=== PATIENT | female | born 1935 | race Caucasian/White ===

== ENCOUNTER 2018-06-28 05:00 | Emergency (ER) | payer MEDICARE, OTHER ==
[~2018-06-28] VITALS: Ht 154.9 cm; Wt 52.2 kg
[~2018-06-28 05:00] MED LIST: ACET325 PO; ALLERGY RELIE15.8 ML; Amitiza24 MCG PO; Amitiza8 MCG; CALCA500CH PO; CEPH500 PO; CONESTTC VAG; Cipro500 MG PO; DIPATR PO; ELIQUIS2.5 MG PO; FAMO20 PO; Flonase 0.05% N16 GM; HYDCOR2.5C PR; HYDR1TAB94 PO; K-Dur20 MEQ PO; Klor-Con 1010 MEQ PO; LEVSOD125; LEVSOD50 PO; LEVSOD75 PO; Lomotil Tablet1 EACH PO; MEMA10 PO; MULT50L PO; Micro-K10 MEQ PO; POTCHL10ER PO; PRED1; PRED1 PO; PRED5 PO; PREMARIN TOP; Refresh Eye Dr1 EACH BOTHEYES; Refresh Plus1 EACH OP; TRIM100 PO; Zofran Odt4 MG SL
[2018-06-28] MEDS ORDERED: Ultram50 MG PO (06:18)
== END 2018-06-28 07:32 | disposition home or self-care (01) ==
LOC: ER 05:00
DX: M25.532 Pain in left wrist (principal); Z88.2 Allergy status to sulfonamides; Z88.8 Allergy status to other drugs, medicaments and biological substances; Z79.899 Other long term (current) drug therapy; Z79.52 Long term (current) use of systemic steroids; E03.9 Hypothyroidism, unspecified
CPT/HCPCS: 29125; 73130; 99284-25; L3917

== ENCOUNTER → 2019-03-24 | Outpatient (CLI) | payer MEDICARE, OTHER ==
[~2019-03-24] MED LIST changes: +Ultram50 MG PO
[2019-03-24 14:05] LABS: Bilirubin, Urine Neg (Neg); Blood, Urine Neg (Neg); Glucose Qualitative, Urine Neg (Neg); Ketones, Urine 1+ (Neg); Leukocyte Esterase, Urine 2+ (Neg); Nitrite, Urine Neg (Neg); Protein, Urine Neg (Neg); Urobilinogen, Urine NORM (Normal)
[2019-03-24 15:03] LABS: Appearance, Urine Hazy (Clear); Bacteria Mod /hpf; Color, Urine Yellow (P-Yellow); Red Blood Cells, Urine 0-2 /hpf (0-2); Squamous Epithelial Cells Mod /hpf (Few)
[2019-03-24 15:04] LABS: Hyaline Casts 0-2 /lpf (0-2)
== END | disposition home or self-care (01) ==
LOC: LAB SHORT 13:36 → LAB 13:36
PROVIDERS: Hospitalist
DX: N39.0 Urinary tract infection, site not specified (principal)
CPT/HCPCS: 81001

== ENCOUNTER 2019-03-27 16:15 | Emergency (ER) | payer MEDICARE, OTHER ==
[~2019-03-27] VITALS: Ht 157.5 cm; Wt 67.1 kg
[2019-03-27] MEDS ORDERED: ELIQUIS2.5 MG PO (16:34)
[2019-03-27] MEDS ORDERED: CEPH500 (16:34)
[2019-03-27] MEDS ORDERED: POTCHL10ER PO (16:35)
[2019-03-27] MEDS ORDERED: RANI150EL (16:35)
[2019-03-27] MEDS ORDERED: LEVSOD50 PO (16:35)
[2019-03-27] MEDS ORDERED: PRED1 PO (16:35)
[2019-03-27] MEDS ORDERED: CHOL10002 (16:36)
[2019-03-27] MEDS ORDERED: TRIM100 PO (16:36)
[2019-03-27] MEDS ORDERED: SERT100 PO (16:36)
[2019-03-27] MEDS ORDERED: ACET325 (16:42)
[2019-03-27 17:00] LABS: BASOPHILS ABSOLUTE AUTO 0.07 K/mm3 (0.00-0.23); BASOPHILS PERCENT AUTO 1 % (0-2); EOSINOPHILS ABSOLUTE AUTO 0.12 K/mm3 (0.00-0.68); EOSINOPHILS PERCENT AUTO 2 % (0-6); Hematocrit 35.2 % (33.0-51.0); Hemoglobin 10.8 g/dL (11.5-16.0); IMMATURE GRAN ABSOLUTE AUTO 0.02 K/mm3 (0.00-0.10); IMMATURE GRAN PERCENT AUTO 0 % (0-1); LYMPHOCYTES ABSOLUTE AUTO 1.42 K/mm3 (0.84-5.20); LYMPHOCYTES PERCENT AUTO 23 % (21-46); MONOCYTES ABSOLUTE AUTO 0.67 K/mm3 (0.16-1.47); MONOCYTES PERCENT AUTO 11 % (4-13); Mean Corpuscular HGB 27.1 pg (26.0-34.0); Mean Corpuscular HGB Conc 30.7 g/dL (31.5-36.5); Mean Corpuscular Volume 88 fL (80-100); Mean Platelet Volume 9.3 fL (9.1-12.4); NEUTROPHILS ABSOLUTE AUTO 3.81 K/mm3 (1.96-9.15); NEUTROPHILS PERCENT AUTO 62 % (41-73); Platelet Count 250 K/mm3 (150-400); RDW Coefficient Variation 15.7 % (11.7-14.2); RDW Standard Deviation 50.4 fL (35.1-46.3); Red Blood Cell Count 3.99 M/mm3 (3.80-5.20); White Blood Cell Count 6.11 K/mm3 (4.00-11.30)
[2019-03-27 17:26] LABS: Alanine Aminotransfer (ALT/SGP 28 U/L (12-78); Albumin, Blood 3.3 g/dL (3.4-5.0); Albumin/Globulin Ratio 0.8 (0.8-1.8); Alk Phos 75 U/L (50-136); Anion Gap 8 mmol/L (6-16); Aspartate Aminotrans (AST/SGOT 27 U/L (12-37); Bilirubin, Total 0.4 mg/dL (0.1-1.0); Blood Urea Nitrogen 12 mg/dL (8-24); Bun/Creatinine Ratio 14.8 (12.0-20.0); CO2, Blood 26 mmol/L (21-32); Calcium, Blood 8.5 mg/dL (8.5-10.1); Chloride, Blood 104 mmol/L (98-108); Creatinine, Blood 0.81 mg/dL (0.40-1.00); Globulin, Blood 3.9 g/dL (2.2-4.0); Glomerular Filtration Rate >60 (60-); Glucose, Blood 102 mg/dL (70-99); Potassium, Blood 3.7 mmol/L (3.5-5.5); Sodium, Blood 138 mmol/L (136-145); Total Protein, Blood 7.2 g/dL (6.4-8.2); Troponin I <0.015 ng/mL (0.000-0.040)
[2019-03-27 18:22] LABS: Source, Urine Catheter
[2019-03-27 18:37] LABS: Appearance, Urine Clear (Clear); Bilirubin, Urine Neg (Neg); Blood, Urine Neg (Neg); Color, Urine Yellow (P-Yellow); Glucose Qualitative, Urine Neg (Neg); Ketones, Urine 1+ (Neg); Leukocyte Esterase, Urine Neg (Neg); Nitrite, Urine Neg (Neg); Protein, Urine Neg (Neg); Specific Gravity, Urine 1.015 (1.003-1.022); Urobilinogen, Urine NORM (Normal)
== END 2019-03-27 20:35 | disposition home or self-care (01) ==
LOC: ER 16:15
PROVIDERS: Physician Assistant
DX: N39.0 Urinary tract infection, site not specified (principal); E03.9 Hypothyroidism, unspecified; Z79.899 Other long term (current) drug therapy; Z88.2 Allergy status to sulfonamides
CPT/HCPCS: 36415; 70450; 71046; 80053; 81003; 83880; 84484; 85025; 93005; 93010; 96365; 99285-25; J3370; P9612

== ENCOUNTER 2019-03-29 08:56 | Day surgery (SDC) | payer MEDICARE, OTHER ==
[~2019-03-29 08:56] MED LIST changes: +ACET325; +CEPH500; +CHOL10002; +RANI150EL; +SERT100 PO
[2019-03-30] MEDS ORDERED: VANCOMYCIN1 GM/1001 IV (09:22)
== END 2019-03-29 11:12 | disposition home or self-care (01) ==
LOC: ATC 08:56
DX: N39.0 Urinary tract infection, site not specified (principal); J20.9 Acute bronchitis, unspecified; H61.23 Impacted cerumen, bilateral; E03.9 Hypothyroidism, unspecified; K21.9 Gastro-esophageal reflux disease without esophagitis; Z88.2 Allergy status to sulfonamides
CPT/HCPCS: 96365; J3370

== ENCOUNTER 2019-03-30 08:33 | Day surgery (SDC) | payer MEDICARE, OTHER ==
[2019-03-30] MEDS ORDERED: VANCOMYCIN1 GM/1001 IV (09:22)
== END 2019-03-30 08:53 | disposition home or self-care (01) ==
LOC: ATC 08:33
DX: N39.0 Urinary tract infection, site not specified (principal); J20.9 Acute bronchitis, unspecified; H61.23 Impacted cerumen, bilateral; K21.9 Gastro-esophageal reflux disease without esophagitis; Z88.2 Allergy status to sulfonamides; Z79.899 Other long term (current) drug therapy; Z87.891 Personal history of nicotine dependence
CPT/HCPCS: 96365; J3370

== ENCOUNTER → 2019-10-27 | Outpatient (CLI) | payer MEDICARE, OTHER ==
[~2019-10-27] MED LIST changes: +ANTACID PLUS A355 M2 PO; +Anti-Diarrheal2 MG PO; +BISA10S PR; -CHOL10002; +ICY HOT TOP; +LORA2L PO; +MILK OF MA400 MG/5 M PO; +MORP20L SL; +ONDA4ODT MM; +Pepcid20 MG PO; +TRAM50 PO; +TUMS500 MG PO; +Transderm-Scop1 EACH TD; +VANCOMYCIN1 GM/1001 IV; +VITAMIN D-32000 UNIT PO
[2019-10-27 15:31] LABS: Source, Urine Clean Catch
[2019-10-27 16:24] LABS: Bilirubin, Urine Neg (Neg); Blood, Urine 2+ (Neg); Glucose Qualitative, Urine Neg (Neg); Ketones, Urine 1+ (Neg); Leukocyte Esterase, Urine 1+ (Neg); Nitrite, Urine Neg (Neg); Protein, Urine Neg (Neg); Urobilinogen, Urine 1+ (Normal)
[2019-10-27 16:39] LABS: Appearance, Urine Cloudy (Clear); Color, Urine Yellow (P-Yellow)
[2019-10-27 16:40] LABS: Amorphous Mod (0-Heavy); Bacteria Many /hpf; Red Blood Cells, Urine 0-2 /hpf (0-2); Squamous Epithelial Cells Rare /hpf (Few); Triple Phosphate Crystals Mod /hpf; White Blood Cells, Urine 0-2 /hpf (0-5)
== END ==
LOC: LAB SHORT 13:25 → LAB 13:25
PROVIDERS: Hospitalist
DX: N39.0 Urinary tract infection, site not specified (principal)
CPT/HCPCS: 81001; 87077; 87086; 87186

== ENCOUNTER 2019-10-28 13:30 | Inpatient (IN) | payer MEDICARE, OTHER ==
[~2019-10-28] VITALS: Ht 152.4 cm; Wt 45.2 kg
[~2019-10-28 13:30] MED LIST changes: -ANTACID PLUS A355 M2 PO; -Anti-Diarrheal2 MG PO; -BISA10S PR; -ICY HOT TOP; -LORA2L PO; -MILK OF MA400 MG/5 M PO; -MORP20L SL; -ONDA4ODT MM; -Pepcid20 MG PO; -TRAM50 PO; -TUMS500 MG PO; -Transderm-Scop1 EACH TD
[2019-10-28 14:35] LABS: BASOPHILS ABSOLUTE AUTO 0.04 K/mm3 (0.00-0.23); BASOPHILS PERCENT AUTO 0 % (0-2); EOSINOPHILS PERCENT AUTO 0 % (0-6); Hemoglobin 11.2 g/dL (11.5-16.0); IMMATURE GRAN ABSOLUTE AUTO 0.06 K/mm3 (0.00-0.10); IMMATURE GRAN PERCENT AUTO 0 % (0-1); LYMPHOCYTES PERCENT AUTO 5 % (21-46); MONOCYTES ABSOLUTE AUTO 1.11 K/mm3 (0.16-1.47); MONOCYTES PERCENT AUTO 8 % (4-13); Mean Corpuscular HGB 24.2 pg (26.0-34.0); Mean Corpuscular HGB Conc 29.5 g/dL (31.5-36.5); Mean Corpuscular Volume 82 fL (80-100); Mean Platelet Volume 8.7 fL (9.1-12.4); NEUTROPHILS PERCENT AUTO 86 % (41-73); Platelet Count 265 K/mm3 (150-400); RDW Coefficient Variation 17.2 % (11.7-14.2); RDW Standard Deviation 51.8 fL (35.1-46.3); Red Blood Cell Count 4.62 M/mm3 (3.80-5.20); White Blood Cell Count 14.81 K/mm3 (4.00-11.30)
[2019-10-28 14:56] LABS: Alanine Aminotransfer (ALT/SGP 26 U/L (12-78); Albumin, Blood 2.6 g/dL (3.4-5.0); Albumin/Globulin Ratio 0.6 (0.8-1.8); Alk Phos 90 U/L (50-136); Anion Gap 7 mmol/L (6-16); Aspartate Aminotrans (AST/SGOT 22 U/L (12-37); Bilirubin, Total 0.5 mg/dL (0.1-1.0); Blood Urea Nitrogen 21 mg/dL (8-24); CO2, Blood 28 mmol/L (21-32); Calcium, Blood 8.6 mg/dL (8.5-10.1); Chloride, Blood 104 mmol/L (98-108); Creatinine, Blood 0.81 mg/dL (0.40-1.00); Globulin, Blood 4.7 g/dL (2.2-4.0); Glomerular Filtration Rate >60 (60-); Glucose, Blood 159 mg/dL (70-99); Potassium, Blood 4.4 mmol/L (3.5-5.5); Sodium, Blood 139 mmol/L (136-145); Total Protein, Blood 7.3 g/dL (6.4-8.2); Troponin I 0.052 ng/mL (0.000-0.040)
[2019-10-28] MEDS ORDERED: Pepcid20 MG PO (15:48)
[2019-10-28] MEDS ORDERED: TRIM100 PO (18:13)
[2019-10-28] MEDS ORDERED: PRED1 PO (18:13)
[2019-10-28] MEDS ORDERED: ACET325 PO (18:14)
[2019-10-28] MEDS ORDERED: ANTACID PLUS A355 M2 PO (18:15)
[2019-10-28] MEDS ORDERED: BISA10S PR (18:16)
[2019-10-28] MEDS ORDERED: TUMS500 MG PO (18:17)
[2019-10-28] MEDS ORDERED: ICY HOT TOP (18:17)
[2019-10-28] MEDS ORDERED: MILK OF MA400 MG/5 M PO (18:18)
[2019-10-28] MEDS ORDERED: Anti-Diarrheal2 MG PO (18:18)
[2019-10-28] MEDS ORDERED: TRAM50 PO (18:19)
--- NOTE | 2019-10-28 18:35 | NUR ---
TRANSFER FROM ER PT TRANSPORTED FROM ER VIA GURNEY. PT IS ON 4 LITER OF N/C. PT IS ALERT TO SELF AND FAMILY. FAMILY AT BEDSIDE, PT UNABLE TO ANSWER QUESTION DUE TO [place] AND DEMENTIA. VITALS DONE ON ARRIVAL AND STABLE AT THIS TIME. BED ALARM ON AND CALL LIGHT WITH IN REACH. WILL COUNTINUE TO MONITOR AND REPORT TO NOC RN
--- NOTE | 2019-10-28 18:46 | NUR ---
ADMIT NOTE PT LUNGS ARE WHEEZY BILATERALY IN UPPER LOBES AND DIMINSHED BILATERALLY IN LOWER LOBES. BIOX IS 90% AND 4 LITER OF N/C, RESPIRATIONS 24 A MINUTE. TIRES ON ACTIVITY.
--- NOTE | 2019-10-28 19:16 | NUR ---
NITA WAS WATCHING TV, FAMILY WENT HOME. IV ANTIBOTIC HUNG. VS TAKEN, PATIENT SATS IN 91% ON 4 LITERS, RESP 37, ASSESSORY MUSCLES IN USE, LABORED BREATHING, SHALLOW. REPOSITIONED THE PATIENT STILL NO CHANGE IN RESPIRATIONS. PATIENT A LITTLE ANXIOUS, TRIED CALM HER DOWN. ENCOURAGED NICE DEEP BREATHS. RESP SLOWED DOWN SOME, SATS STILL IN THE 90'S. PATIENT ALSO EATING HER DINNER WHICH IS DIFFICULT FOR HER DUE TO OXYGEN DEPERVATION. WILL RECHECK WHEN SHE IS DONE EATING.
--- NOTE | 2019-10-28 20:19 | NUR ---
CRITICAL HIGH LACTIC ACID WAS CALLED AROUND 1949, LEVEL IS LOWER THEN PREVIOUS ONE. NO CALL TO .
--- NOTE | 2019-10-28 20:30 | NUR ---
RECHECKED RESPIRATIONS, NO CHANGES STILL IN THE 30'S AND LABORED, PATIENT WORKING HARD TO BREATH. CALLED RT TO COME TAKE A LOOK AT HER. RT RECOMMENDED CPAP. CALLED HOSPITALIST AND GOT ORDER FOR CPAP AND SOLUMEDROL. RT IN ROOM PUTTING PATIENT ON CPAP, ROOM OXYGEN IS 84% ON 6 LITERS. PLACED ON CPAP OXYGEN LEVELS BACK IN THE 90'S.
--- NOTE | 2019-10-28 21:26 | NUR ---
PATIENT HAD HER CPAP OFF, AND LAYING CRUNCHED DOWN IN BED, RESP LABORED, ASSESSORY MUSLCE STILL AT WORK, SATS IN THE 60%, HR IN THE 100'S. REPOSITIONED HER, PLACED HER BACK ON CPAP, IT TOOK SEVERAL MINUTES FOR HER TO ADJUST. RT HAS 10LITERS OF O2 BLEEDING INTO THE CPAP, IF SHE TALKS THE SATS DROP INTO THE 80'S WHILE ON CPAP. ENCOURAGED HER TO TAKE DEEP BREATHS. SOLUMEDROL WAS GIVEN. PLACED PILLOWS BEHIND HER BACK. RESP STILL IN THE 30'S.
--- NOTE | 2019-10-28 22:30 | NUR ---
PATIENT TOOK OFF HER CPAP TO GET SOMETHING TO DRINK, PLACED HER ON NC WITH 8 LITERS OF O2 SATS 91%, REPOSITIONED AGAIN TO SITTING POSITION SHE SCOOTS DOWN IN BED. REFUSED TO HAVE MASK BACK ON. NO CHANGES IN BREATHING PATTERN HE TENDS TO CONTINUE TO BE LABORED WHILE SHE EATS AND DRINKS. WILL MONITOR, CHARGE NURSE INFORMED OF SITUATION WELL.
--- NOTE | 2019-10-28 23:48 | NUR ---
RESP UP TO 42 A MIN, PATIENT STILL WORKING TO BREATH ON 8L OF O2, CURRENTLY RUNNING FROM 92-94%. LUNG SOUNDS HAVE CHANGED FROM DECREASED TO MORE CRACKLES IN THE BASES TO MID LOBES, COURSE SOUNDING. CALLED DR. SNOWDEN, REPORTED THE CHANGES, ORDERS TO SL THE IV AND GIVE 40MG IV LASIX NOW. ORDER PUT IN. IV SL.
--- NOTE | 2019-10-29 02:01 | NUR ---
PATIENT DOING BETTER SINCE LASIX WAS GIVEN. HER RESPIRATIONS ARE DOWN TO 32 AND SHE IS NOT WORKING SO HARD TO BREATH. SATS ARE STAYING AT 94% ON 8 LITERS. SHE IS ABLE TO LAY FLATTER INSTEAD OF SITTING STRAIGHT UP. WILL CONTINUE MONITOR.
--- NOTE | 2019-10-29 04:56 | NUR ---
SHIFT SUMMARY: NITA HAS HAD TACHYPNEA THIS SHIFT. STARTING RESPIRATIONS WERE 36 ON 4 LITERS OF O2 SATS 91%, THIS INCREASED OVER TIME REACHING A HIGH OF 45 WITH INCREASE OF OXYGEN TO 6 LITERS, SATS IN TH 80'S. CPAP AND SOLUMEDROL WERE ORDERED AND GIVEN, CPAP HAD 10L O2 FEED INTO IT. SATS RANGED FROM 88-91%. IF NITA TALKED OR MOVED HER SATS WOULD DROP INTO THE LOW 80'S. AT THIS POINT SHE WAS LABORED BREATHING, USING ALL HER ASSESSORY MUCLES. REPOSIIONING WAS NOT EVEN DOING IT. LUNG SOUNDS WENT FROM DIMINISHED WITH MILD CRACKLES TO FULL COURSE CRACKLES. SHE CONTINUED TO REMOVE HER CPAP WHICH WOULD DROP HER SATS IN THE 60'S. OXYGEN WAS PLACED BACK ON WITH 8 LITERS OF O2. SITTING STILL AND NOT TALKING SHE WOULD SAT AT 91%. MD WAS CALLED AGAIN AND IV WAS SL AND LASIX 40ML IV WAS GIVEN. RESP DECREASED TO LOW 30'S BUT SHE WAS ABLE TO LAY ALMOST FLAT TO SLEEP AND SATS STAYED UP TO 84%, AND HER OXYGEN LEVEL WAS ABLE TO DECREASE TO 6LITERS ENDING UP WITH SATS AVERAGE 88-91%. CRITICAL LACTIC ACID WAS ALSO RECIEVED AT 2,3 WHICH WAS LOWER THEN PREVIOUS. SHE HAS REMAINED SLIGHTLY CONFUSED, FATIQUED, AND TRYING TO SLEEP MOST OF THE NIGHT WHEN SHE WASN'T WORKING SO HARD TO BREATH. CALL LIGHT REMAINED IN PLACE AND BED ALARM STAYED ON. WILL REPORT TO DAY SHIFT RN.
[2019-10-29 05:05] LABS: BASOPHILS ABSOLUTE AUTO 0.01 K/mm3 (0.00-0.23); BASOPHILS PERCENT AUTO 0 % (0-2); EOSINOPHILS PERCENT AUTO 0 % (0-6); Hematocrit 39.1 % (33.0-51.0); Hemoglobin 11.5 g/dL (11.5-16.0); IMMATURE GRAN ABSOLUTE AUTO 0.04 K/mm3 (0.00-0.10); IMMATURE GRAN PERCENT AUTO 0 % (0-1); LYMPHOCYTES ABSOLUTE AUTO 0.43 K/mm3 (0.84-5.20); LYMPHOCYTES PERCENT AUTO 4 % (21-46); MONOCYTES ABSOLUTE AUTO 0.17 K/mm3 (0.16-1.47); MONOCYTES PERCENT AUTO 2 % (4-13); Mean Corpuscular HGB 23.9 pg (26.0-34.0); Mean Corpuscular HGB Conc 29.4 g/dL (31.5-36.5); Mean Corpuscular Volume 81 fL (80-100); Mean Platelet Volume 9.2 fL (9.1-12.4); NEUTROPHILS ABSOLUTE AUTO 10.39 K/mm3 (1.96-9.15); NEUTROPHILS PERCENT AUTO 94 % (41-73); Platelet Count 244 K/mm3 (150-400); RDW Coefficient Variation 17.1 % (11.7-14.2); RDW Standard Deviation 50.3 fL (35.1-46.3); Red Blood Cell Count 4.81 M/mm3 (3.80-5.20); White Blood Cell Count 11.04 K/mm3 (4.00-11.30)
[2019-10-29 05:38] LABS: Anion Gap 7 mmol/L (6-16); Blood Urea Nitrogen 19 mg/dL (8-24); Bun/Creatinine Ratio 29.2 (12.0-20.0); CO2, Blood 30 mmol/L (21-32); Calcium, Blood 8.8 mg/dL (8.5-10.1); Chloride, Blood 101 mmol/L (98-108); Creatinine, Blood 0.65 mg/dL (0.40-1.00); Glomerular Filtration Rate >60 (60-); Glucose, Blood 136 mg/dL (70-99); Potassium, Blood 3.7 mmol/L (3.5-5.5); Sodium, Blood 138 mmol/L (136-145)
--- NOTE | 2019-10-29 16:54 | NUR ---
SHIFT SUMMARY- PT A/O TO SELF AND FAMILY ONLY. PT DENIES ANY COMPLAINTS T/O THE DAY. LS COARSE, PT REMAINS ON 6L N/C. PT DESATS INTO THE 70'S WITH ANY EXERTION AND INCREASED RESPIRATIONS. NO COUGH NOTED. PT REMAINS BEDREST AT THIS TIME. INCONT OF URINE. POOR PO INTAKE NOTED, PT NEEDING ASSISTANCE WITH EATING AT TIMES, ENSURES ENCOURAGED. NO OTHER ACUTE CHANGES THIS SHIFT.
--- NOTE | 2019-10-29 19:50 | NUR ---
ASSUMED CARE OF THE PATIENT. SHE IS SITTING QUIETLY IN BED, WATCHING TV. OXYGEN AT 6 LITERS, SATS IN [place] 90'S. DOES DROP WHEN SPEAKING TO 87%. LUNG SOUNDS CRACKLES COURSE. STATES NO COUGH TODAY. DOES REPORT SOME DIARRHEA. CLEANSED LARGE LOOSE STOOL IN ATTENDS, PLACED ON BEDPAN. WHEN LAYING HER DOWN SHE ALSO DESATED INTO THE 80'S BUT THEN CAME BACK UP TO THE 90'S. NO EDEMA NOTED. CALL LIGHT IN REACH.
--- NOTE | 2019-10-29 20:48 | NUR ---
MED GIVEN, WATER NEW [place] GIVEN, REPOSITIONED UP IN BED. NO CHANGES IN BREATHING STILL FAST AND SHALLOW.
--- NOTE | 2019-10-29 22:30 | NUR ---
NITA WAS FOUND SITTING ON THE SIDE OF THE BED TRYING TO GET UP. INFORMED HER THAT HER DOCTOR WANTS HER ON BED REST. ASSISTED IN GETTING HER BACK INTO BED. CHECKED ATTENDS, DRY. SHE STATES SHE WAS WANTED TO GO LOOK AROUND, STATING SHE WANTS TO FIND HER DAUGHTERS. ORIENTED HER TO THE HOSPITAL AND THAT HER DAUGHTERS WILL BE THERE IN THE MORNING. PLACED BED ALARM ON HER AT THIS TIME.
--- NOTE | 2019-10-29 23:40 | NUR ---
NITA WAS FOUND AGAIN ATTEMPTING TO GET OUT OF BED. SHE INSISTED THAT SHE NEEDS TO GO TO THE BATHROOM AND DOES NOT WANT TO USE THE BEDPAN. THEREFORE, ASSISTED TO BEDSIDE COMMODE TO SEE HOW SHE DOES. SHE WAS VERY UNSTEADY AND HER LEGS WANTED TO BUCKLE. ATTENDS WET AND HAD LOOSE STOOL. CLEANSED HER UP AND ASSISTED HER BACK TO BED. THIS MADE HER SATS DROP TO 80%, ENCOURAGED HER TO BREATH THROUGH HER NOSE, HAD TO TURN UP THE OXYGEN TO 8LITERS TO ASSIST. GOT HER BACK TO 90% ON THE 8 LITERS.
--- NOTE | 2019-10-30 00:10 | NUR ---
NITA WAS SITTING IN BED, SATS HOLDING AT 92% ON THE 8 LITERS, RESP STILL IN THE 30'S. ATTEMPT TO TURN HER BACK DOWN TO 6 LITERS FAILED SHE WOULD DROP TO 88%. ENCOURAGED HER TO DEEP BREATH, REPOSITIONED HER AGAIN UP IN BED. PATIENT BACK TO 8 LITERS OF 02 ON NC.
--- NOTE | 2019-10-30 02:00 | NUR ---
DR. SNOWDEN WAS CALLED AROUND 0140 AND INFORMED OF THE TRANSFER TO PCU, ORDER WAS RECEIVED. STATES DR. THOMPSON WILL BE COVERING AND TO MAKE SURE HE IS INFORMED OF HER TRANSFER. CALLED PCU PATIENT WAS TRANSFERRED AROUND 140 TIME AFTER REPORT WAS GIVEN. THEY WERE INFORMED OF DR. THOMPSON COVERING.
--- NOTE | 2019-10-30 02:00 | NUR ---
CONTINUOUS BIOX SOUNDING, WENT TO ROOM TO INVESTIGATE, SHE HAD THE OXYGEN SENSOR OFF, AND OXYGEN OUT OF HER NOSE. PLACED SENDOR BACK ON FINGER, TOLD HER TO LEAVE IT ON. PLACED OXYGEN IN NOSE ENCOURAGED NASAL BREATHING. SHE WOULD NOT STOP TALKING ABOUT HER DAUGHTERS AND TV SHOW. COULD ONLY GET SATS UP TO 70'S. GRABBED NEW SENSOR THINKING IT WAS NOT WORKING. STILL SATS IN LOW 70'S. GRABBED VITALS MACHINE TO VERIFY LOW SATS, NO CHANGES. INCREASED HER OXYGEN TO 10 LITERS NO CHANGE NOTED. PLACED HER ON CPAP, SHE GAME UP TO LOW 80'S. ENCOURAGED DEEP BREATHING. CALLED MARINE GUAN RN, WHO CAME TO ROOM. RT WAS SO HAPPEN TO BE WALKING BY AT THAT TIME AND CAME TO INVESTIGATE. SHE INCREASED HER OXYGEN TO CPAP TO MAX ON THE WALL, AND STARTED A BREATHING TREATMENT. REMOVED BEDPAN THE PATIENT WAS ON, LOOSE STOOL NOTED. POSITIONED UPRIGHT. STILL LABORED BREATHING AND STATING SHE CANT GET AN AIR IN. RT PLACED HER ON HIGHER DOSE OXYGEN MAXED OUT WE COULD GET IN THE ROOM, LIKE 30 LITERS, SATS REMAINED IN THE 80'S. RAPID RESPONSE WAS DISCUSSED AND AGREED TO CALL. CHARGED CALLED RAPID RESPONSE. RT CALLED FOR BIPAP, VITALS TAKEN SHOWED RESP AT 52 BREATHS A MIN. REST OF VITALS OK. PATIENT WAS PLACED ON BIPAP WITH 100% OXYGEN SATS CAME UP TO 92-94%. THEN SHE DECREASED IT TO 65% OXYGEN WITH SATS AT 94%. RESP STILL IN THE 50'S. PATIENT WILL BE TRANSFERRED TO PCU.
--- NOTE | 2019-10-30 02:05 | NUR ---
PATIENT ARRIVED FROM MED FLOOR BY HOSP BED, AWAKE AND ALERT WEARING BIPAP, ACCOMPNIED BY TWO [facility] STAFF, TRANSFERRED TO UNIT BED BY SLIP SHEET AND 4 STAFF. RESPIRATIONS AT 58, LUNG SOUNDS COARSE BUT NO CRACKLES AUSCULTATED. SKIN IS FRAGILE BUT INTACT, NO PRESSURE ULCERS NOR REDNESS NOTED. PULSES PALPABLE ALL EXT'S. PATIENT C/O CHILLS, TREATED W/ WARM BLANKET AND INCREASE ROOM HEAT. HR PACED AT 72. WILL CONTINUE TO MONITOR
--- NOTE | 2019-10-30 04:46 | NUR ---
PATIENT APPEARS TO BE SLEEPING, BUT MUMBLES OCCASIONALLY WHILE RESTING IN BED. REST APPEARS TO BE PEACEFUL, RESPIRATIONS AT 31 COMPARED TO 58 AT TRANSFER TO UNIT. WILL CONTINUE TO MONITOR.
--- NOTE | 2019-10-30 07:30 | NUR ---
ASSUMED CARE: PT RESTING QUIETLY IN BED AT THIS TIME. NO ACUTE NEEDS OR CONCERNS NOTED.
--- NOTE | 2019-10-30 07:45 | NUR ---
SHIFT SUMMARY PATIENT STAYED IN BED, O2 SATS ABOVE 90% ON BIPAP 10/5. OVER THE COURSE OF THE REST OF THE SHIFT FIO2 WAS REDUCED FROM 90 TO 60, WHICH IS WHERE IT SITS AT IFT CHANGE. AUSCULTATED LUNG REMAINED FREE OF CRACKLES AND WHEEZE, ALTHOUGH COARSE AND TIGHT. PATIENT TOOK ONE ORAL MEDICATION APPROPRIATELY WITHOUT APPARENT ASPIRATION, BUT DE-SATTED QUICKLY WITHOUT BIPAP MASK IN PLACE. REPORT AND CARE GIVEN TO COLT/MARYLIN AT 0700, PATIENT LYING IN BED, BED LOCKED AND LOW, CALL LIGHT W/IN REACH
--- NOTE | 2019-10-30 08:08 | NUR ---
MESSAGE LEFT FOR PATIENT DAUGHTER SOCRATES REGARDING TRANSFER TO PCU LAST NIGHT.
--- NOTE | 2019-10-30 08:12 | NUR ---
DR THOMPSON CALLED FOR FAMILY NUMBERS TO GIVE UPDATE. DAUGHTER AND SON IN LAW'S NUMBERS PROVIDED. ORIENTLYNNE AND ETHEL CHANGED ATTENDS AND STATES THAT PT DOES NOT TOLERATE ANY KIND OF STIMULATION WITH RESPIRATIONS INTO THE 40S-60S WITH ACTIVITY.
--- NOTE | 2019-10-30 09:20 | NUR ---
NOTIFIED OF PT STATUS. MEDS WILL BE HELD AT THIS TIME DUE TO PT NOT TOLERATING BEING DISCONECTED FROM THE BIPAP. PT REMAINS ALERT & ORIENTED. O2 SATS QUICKLY DECLINE WHEN MASK IS REMOVED. RESP INCREASE FROM MID 40'S TO LOW 60'S. STATES HE WILL ORDER LOVENOX TO COVER MISSED ELIQUIS.
[2019-10-30 13:30] LABS: Adenovirus Not Detected (NOT DETECT); Bordetella pertussis Not Detected (NOT DETECT); Chlamydophila pneumoniae Not Detected (NOT DETECT); Coronavirus 229E Not Detected (NOT DETECT); Coronavirus HKU1 Not Detected (NOT DETECT); Coronavirus NL63 Not Detected (NOT DETECT); Coronavirus OC43 Not Detected (NOT DETECT); Human Metapneumovirus Not Detected (NOT DETECT); Human Rhinovirus/Enterovirus Not Detected (NOT DETECT); Influenza A Not Detected (NOT DETECT); Influenza A/2009-H1 Not Detected (NOT DETECT); Influenza A/H1 Not Detected (NOT DETECT); Influenza A/H3 Not Detected (NOT DETECT); Influenza B Not Detected (NOT DETECT); Mycoplasma pneumoniae Not Detected (NOT DETECT); Parainfluenza Virus 1 Not Detected (NOT DETECT); Parainfluenza Virus 2 Not Detected (NOT DETECT); Parainfluenza Virus 3 Not Detected (NOT DETECT); Parainfluenza Virus 4 Not Detected (NOT DETECT); Respiratory Syncytial Virus Not Detected (NOT DETECT)
--- NOTE | 2019-10-30 14:39 | NUR ---
IN THE ROOM TO SPEAK WITH THE PT'S DAUGHTER. PALLIATATIVE CARE AND END OF LIFE CARE OPTIONS WERE DISCUSSED. PT WILL REMAIN A DNR/DNI AT THIS TIME. CURRENT COURSE OF ACTION WILL REMAIN AND PALLIATATIVE CARE WILL BE CONSULTED.
--- NOTE | 2019-10-30 16:00 | NUR ---
IN TO SPEAK WITH FAMILY
--- NOTE | 2019-10-30 16:29 | NUR ---
PALLIATIVE CARE IN THE ROOM TO SPEAK WITH FAMILY AT THIS TIME.
--- NOTE | 2019-10-30 16:40 | NUR ---
Pt visit this afternoon. Pt resting in bed and is wearing BIPAP. Mild anxiety noted as evidenced by occasional sudden brisk turns of her head. Daughter Анна at bedside. Offered emotional support and validated concerns. Анна asks "where do we go from here?". Educated on options for goals of care including continuing current treatment and hospice as an option. Educated on hospice and comfort care philosophy with V/U made by Анна. Анна expresses appreciation of visit and reports no other concerns at this time. Анна is agreeable with continued visits from Palliative Care. Spoke with bedside MESFIN Piña and discussed case. Palliative Care will remain available.
--- NOTE | 2019-10-30 19:26 | NUR ---
SHIFT SUMMARY PT CONTINUES TO NOT TOLERATE THE REMOVAL OF THE BIPAP MASK FOR LONGER THAN 1 MINUTE AT A TIME. SHE WILL QUICKLY DESAT INTO THE LOW 80'S, RESP INCREASE TO MID 60'S. FIO2 WAS INCREASED DURING ATTENDS CHANGES AND REPOSITIONING THEN PLACED BACK TO THE ORIGINAL SETTING. RESP REMAIN LABORED & TACHYPNIC. PT HAS BEEN ANXIOUS AND UNABLE TO REST FOR THE MAJORITY OF THE DAY. ORDERED PRN ATIVAN THIS AFTERNOON. NO DOSES WERE GIVEN THE PT FELL ASLEEP ON HER OWN AFTER HER DAUGHTER LEFT THE BEDSIDE. PALLIATIVE CARE WAS IN TO SPEAK WITH THE DAUGHTER TODAY. PULMONOLOGY HAS BEEN CONSULTED. CURRENT BIPAP SETTING ARE 10/5, FI02-50%, RATE-12, NS @ 25 ML/HR TKO, CLINIMIX TO BE STARTED THIS EVENING, O2 SAT 93. BED ALARM FOR SAFETY, CALL LIGHT IN REACH, REPORT GIVEN TO KARAN TOURE.
--- NOTE | 2019-10-30 21:29 | NUR ---
ASSUMED CARE APPROXIMATELY 19OO; PT RESTING IN BED; BIPAP IN PLACE 50% FIO2; O2 95%; FINGERS WARM AND DRY; STRONG RADIAL PULSES BILATERALLY; PT MOANED W/ MOVEMENT OF ARMS AND BLANKETS; SOOTHED PT W/ VOICE AND REASSURED; PT SETTLED EASILY; CALL LIGHT IN REACH; BED IN LOWEST POSITION; BED ALARM ON; WILL CONTINUE TO MONITOR CLOSELY;
--- NOTE | 2019-10-31 05:18 | NUR ---
SHIFT SUMMARY PT CALM MOST OF THE NIGHT W/ EPISODES OF INCREASED RR; MOANING W/ INTERVENTIONS; PT RESTED IN BETWEEN INTERVENTIONS; BIPAP IN PLACE FOR DURATION OF SHIFT; BIPAP SETTINGS MANAGED BY RT; TITRATED FIO2 TO 35%; CLINIMIX GTT 75 MLS/ HR; CALL LIGHT IN REACH; BED IN LOWEST POSITION; WILL CONTINUE TO MONITOR CLOSELY UNTIL HAND OFF TO DAY SHIFT RN.
--- NOTE | 2019-10-31 05:42 | NUR ---
UPDATE AT BEDSIDE; RT AT BEDSIDE; DISCUSSION ON ATTEMPTING AIRVO OR HIGH FLOW OPTIONS FOR PT
--- NOTE | 2019-10-31 10:31 | NUR ---
Pt is resting in bed and is wearing AIRVO. Pt is A&OX1 and appears comfortable. Pt currently eating breakfast and no S/S of distress at this time. Spoke with bedside RN Farhana and discussed case. Farhana expresses concerns of Pt showing decline since being admitted. Palliative Care will F/U when daughter is visiting for continued therapeutic support.
--- NOTE | 2019-10-31 12:52 | NUR ---
Pt visit this afternoon. Pt resting in bed and is alert but not orientated. Pt conversing with her daughter Анна. Анна asks more questions regarding Hospice. Answered questions and concerns. Анна reports speaking with family and are agreeable with hospice services. Re-enforced education on hospice philosophy with V/U made by Анна. Educated on AIRVO not being available for Pt on hospice but comfort still able to be maintained through Roxinol and O2 via NC. Discussed competing new POLST that aligns with goals of care. Assisted with completing new POLST with education on life sustaining measures. DNR and Comfort Measures Only chosen. Further Discussion regarding goals of care including maintaining supportive measures until Pt can discharge back home on hospice or placing Pt on comfort care while in the hospital. Educated on comfort care philosophy and instructed AIRVO would be D/C and replaced with O2 via NC and Roxinol available for air hunger. Educated on the possibility of Pt passing away at the hospital if placed on comfort care. Анна V/U and wishes are for comfort care to start while in the hospital. Анна reports no other concerns at this time and expresses appreciation of visit. Palliative Care contact information given and instructed to call with any questions or concerns. Анна is agreeable for continued therapeutic visits. Brochures given for each Hospice agency available. Called and spoke with Dr Lopez and discussed family's wishes. Dr Lopez will have further discussions with family during his evening rounds. Changed code status to DNR per V/O from Dr Lopez. If Pt discharges on hospice, recommend same day admit to hospice services. Availability dates for each hospice agency given to family. Palliative Care will remain avilable
--- NOTE | 2019-10-31 20:23 | NUR ---
GERARDO, VO2 RUNNING, ABLE TO ANSWER SIMPLE QUESTIONS BUT EASILY CONFUSED/DISTRACTED, MEDICATED PRESCRIBED, WILL CONTINUE TO MONITOR AND TREAT APPROPRIATE, DENIES PAIN
--- NOTE | 2019-11-01 04:07 | NUR ---
CALLED 328 NURSE TO PROVIDE REPORT, PT ON AIRVO, ALERT BUT ORINTATED TO SELF, IV ON RAC WITH BRACE, LUIS ANGEL, DEPENDS
--- NOTE | 2019-11-01 04:34 | NUR ---
TRANSFER FROM PCU TO 328 RECIEVED REPORT FROM ROCIO Reyes RN @0400. TRANSFERED TO 328 @0969 & I ASSUMED CARE OF THIS PT. 4 PERSON SLIDE TRANSFER TO NEW BED. PT DENIES PAIN, NAUSEA. REPORTS FEELING "A LITTLE" SOB. ON AIRVO - 45L/MIN & 56% FIO2. RR 28, SPO2 @94%. AOX1- UNAWARE DATE, PLACE, OR PRESIDENT/SITUATION. CONFUSED @BASELINE & HAS HX DEMENTIA. FOLLOWS DIRECTIONS. VSS. INCONTINENT OF BM & CHANGED SHORTLY AFTER ARRIVING TO FLOOR. REPOSITIONED. CALL LIGHT IN REACH & I WILL CONTINUE TO MONITOR UNTIL DAY SHIFT RN ASSUMES CARE.
--- NOTE | 2019-11-01 06:37 | NUR ---
PHYSICIAN COMMUNICATION DR THOMPSON IN TO SEE PT THIS AM AROUND 0625. STATES HE WILL ADVANCE DIET TO FULL LIQUID. DENIES THE NEED FOR COMFORT CARE ORDERS @THIS TIME & STATES HE SPOKE W/PTS DAUGHTER ABOUT THIS DECISION. CALL LIGHT IN REACH.
--- NOTE | 2019-11-01 10:52 | NUR ---
PT UP WITH PT THE PT IS AWAKE ALERT THIS AM ABLE TO TAKE MEDICATIONS WITH APPLESAUCE, THE PT WAS UP WITH THE PHYSICAL THERAPSIT AND STOOD BRIEFLY AT THE SIDE OF THE BED THE PTS O2 SATS PER THE THERAPIST DROPPED TO 65% THE PT WAS PUT BACK TO BED AND MADE COMFORTABLE PT O2 SAT CAME BACK TO THE UPPER 80-LOW 90%, WILL CONTINUE TO MONITOR AND ASSESS FOR CHANGES
--- NOTE | 2019-11-01 16:58 | NUR ---
DR THOMPSON TO BEDSIDE REGARDING HIGH RR, PT SAYS SHE FEELS COMFORTABLE. RT CALLED TO DO PRN BREATHING TREATMENT, STILL AT 45L WITH 56% ON AERVO SATS AT 90%, PER DR THOMPSON, CONTINUE TO MONITOR, NO ADDITIONAL INTERVENTION AT THIS TIME, STILL ON THE LINE FOR WHETHER OR NO TO PURSUE COMFORT CARE
--- NOTE | 2019-11-01 18:50 | NUR ---
SHIFT SUMMARY THIS AFTERNOON, RICKY DENIES PAIN. VERY [place], BUT HAD FAMILY AT BEDSIDE. AFTER FAMILY LEFT, PULLING AT LINES, TRYING TO GET OOB A FEW TIMES, PULLED OFF OXYGEN 3/4 TIMES ALSO. GAVE IV ATIVAN FOR AGITATION. MAY NEED RESTRAINTS IF ATIVAN NOT WORKING WELL ENOUGH. POOR PO INTAKE, BUT DOES LIKE VANILLA ENSURES. RR HIGH IN UPPER 30S, DR THOMPSON AWARE. CLINIMIX RUNNING AT 75, NEW PIV STARTED FOR ABX. INCONTINENT Q2 TURNS PERFORMED WITH [facility]. CALL LIGHT IN REACH, [facility]
--- NOTE | 2019-11-01 21:07 | NUR ---
*LATE ENTRY* RECIEVED REPORT FROM DAY SHIFT RN AROUND 1904. WENT IN TO CHECK ON PT & PULSE OX HAD BEEN TAKEN OFF SO I REPLACED. LEFT ROOM & RETURNED TO ASSESS PT AROUND 1939, PT HAD REMOVED AIRVO NC & PULSE OX AGAIN. PULSE OX MACHINE WAS NOT ALARMING, PLACED PULSE OX & AIRVO BACK ON PT & SPO2 WAS 78%. AFTER A COUPLE MIN SHE RETURNED TO 90% SPO2 ON 45L/MIN @56% FIO2. ASKED RT FOR NEW CONTINUOUS PULSE OX MACHINE, WHICH THEY WERE ABLE TO PLACE. SPO2 IS NOW @96%. PT ALSO WAS TACHYPNIC W/RR OF 36, MEDICATED W/MORPHINE & RR HAS DECREASED TO 28. I WILL CONTINUE TO MONITOR.
--- NOTE | 2019-11-02 00:18 | NUR ---
CONT PULSE OX ALARMING CAME INTO ROOM BECAUSE CONT PULSE OX WAS ALARMING & SPO2 @70%. PT HAD REMOVED AIRVO & WAS ON RA. REPLACED AIRVO & WITHIN A FEW MIN SPO2 BACK @95% ON 45L/MIN W/FIO2 56%. DISCUSSED W/PT THE NEED TO KEEP AIRVO CANNULA IN PLACE. RR @26. I WILL CONTINUE TO MONITOR.
--- NOTE | 2019-11-02 06:29 | NUR ---
SHIFT SUMMARY CONT PULSE OX WAS ALARMING AROUND 0550, SPO2 @60%, PT HAD REMOVED AIRVO CANNULA & WAS ON RA. REPLACED AIRVO CANNULA & WITHIN A COUPLE MIN SPO2 @92-95% ON 45L/MIN W/FIO2 @58%. SLEPT WELL TONIGHT. AOX1-TO SELF & FOLLOWING DIRECTIONS ONLY. VSS-EXCEPT WHEN PT REMOVES AIRVO. LUNGS HAVE COURSE CRACKLES T/O. STATES "YES" WHEN ASKED IF SHE FEELS SOB. GAVE MORPHINE 1X PER ORDERS TO ASSIST W/BREATHING, DECREASED RR FROM 36 TO 28 & PT APPEARED MORE RELAXED & WAS SLEEPING. TURNED, REPOSITIONED & CHANGED PRN. CLINIMEX RUNNING @75ML/HR. DR THOMPSON IN THIS AM AROUND 0620 TO ASSESS PT, NO NEW ORDERS @THIS TIME. CALL LIGHT IN REACH & BED ALARM PLACED FOR SAFETY. I WILL CONTINUE TO MONITOR UNTIL DAY SHIFT RN ASSUMES CARE.
[2019-11-02 06:47] LABS: BASOPHILS ABSOLUTE AUTO 0.01 K/mm3 (0.00-0.23); BASOPHILS PERCENT AUTO 0 % (0-2); EOSINOPHILS ABSOLUTE AUTO 0.01 K/mm3 (0.00-0.68); EOSINOPHILS PERCENT AUTO 0 % (0-6); Hematocrit 36.5 % (33.0-51.0); Hemoglobin 10.7 g/dL (11.5-16.0); IMMATURE GRAN ABSOLUTE AUTO 0.09 K/mm3 (0.00-0.10); IMMATURE GRAN PERCENT AUTO 1 % (0-1); LYMPHOCYTES ABSOLUTE AUTO 0.85 K/mm3 (0.84-5.20); LYMPHOCYTES PERCENT AUTO 8 % (21-46); MONOCYTES ABSOLUTE AUTO 0.56 K/mm3 (0.16-1.47); MONOCYTES PERCENT AUTO 6 % (4-13); Mean Corpuscular HGB 24.2 pg (26.0-34.0); Mean Corpuscular HGB Conc 29.3 g/dL (31.5-36.5); Mean Corpuscular Volume 83 fL (80-100); Mean Platelet Volume 9.1 fL (9.1-12.4); NEUTROPHILS ABSOLUTE AUTO 8.61 K/mm3 (1.96-9.15); NEUTROPHILS PERCENT AUTO 85 % (41-73); Platelet Count 262 K/mm3 (150-400); RDW Coefficient Variation 16.8 % (11.7-14.2); RDW Standard Deviation 50.4 fL (35.1-46.3); Red Blood Cell Count 4.42 M/mm3 (3.80-5.20); White Blood Cell Count 10.13 K/mm3 (4.00-11.30)
[2019-11-02 07:02] LABS: Anion Gap 4 mmol/L (6-16); Blood Urea Nitrogen 24 mg/dL (8-24); Bun/Creatinine Ratio 55.3 (12.0-20.0); CO2, Blood 32 mmol/L (21-32); Calcium, Blood 8.4 mg/dL (8.5-10.1); Chloride, Blood 101 mmol/L (98-108); Creatinine, Blood 0.43 mg/dL (0.40-1.00); Glomerular Filtration Rate >60 (60-); Glucose, Blood 126 mg/dL (70-99); Potassium, Blood 4.4 mmol/L (3.5-5.5); Sodium, Blood 137 mmol/L (136-145)
--- NOTE | 2019-11-02 16:20 | NUR ---
PT IS A/O X2 TO SELF AND FAMILY, PLEASANT AND COOPERATIVE, THE PT HAS REMAINED BEDREST TODAY, HOWEVER, THE PHYSICAL THERAPIST DID WORK WITH THE PT AGAIN TODAY, AGAIN THE PT WAS UNALBE TO MAINTAIN O2 SATS AND IMEDIATLY DROPPED INTO THE 60-70% RANGE WITH JUST SITTING ON THE EDGE OF THE BED, THIS AFTERNOON THE PT HAD TAKEN HER OXYGEN OFF AND HER SATS DROPPED LOW 50%, O2 WAS REAPPLIED AND THE SATS CAME BACK TO THE 90'S AFTER ABOUT 2 MIN, THE PTS DAUGHTER WAS IN TO SEE THE PT TODAY AND SAT WITH THE PT FOR SEVERAL HOURS, THE PT WAS GIVEN MORPHINE X1 FOR AIR HUNGER, CALL LIGHT IN REACH, O2 ON VIA AIRVO AT 56%, CALL LIGHT IN REACH, WILL CONTINUE TO MONITOR FOR CHANGES, THE PT HAS HAD 2 LARGE INCONTENT VOIDS AND 2 SMALL BM'S SO FAR THIS SHIFT
--- NOTE | 2019-11-03 10:54 | NUR ---
Pt visit this AM. Pt resting in bed and appears moderately in distress as evidenced by facial grimacing, moaning, and increased respiratory rate. PAINAD score 3/10. Bedside RN Teresa offering medications including Morphine IV to help with pain and SOB. Pt's daughter Анна is at bedside. Анна reports Dr Aguilar plans to return at 12;30 to discuss goals of care. Анна is agreeable with this RN to return at that time for support and further questions if any regarding discussion. Spoke with bedside MESFIN Moore and discussed case. Spoke with lee Friedman and discussed case. Palliative Care will remain available.
--- NOTE | 2019-11-03 13:14 | NUR ---
Pt visit this afternoon. Pt resting in bed and appears comfortable at this time. Daughter at bedside. Dr Aguilar and Evans Friedman present. Discussion regarding goals of care with family choosing D/C with hospice. After further discussion plan is for Pt to continue supportive care until other family members can arrive tomorrow and day after. Plan is for Pt to be placed on comfort care on and D/C with hospice on . Dr Aguilar will place order for low dose Roxanol today for air hunger. Spoke with bedside MESFIN Moore and discussed case. Palliative Care will remain available.
--- NOTE | 2019-11-03 16:34 | NUR ---
Inital spiritual care note: Mrs. Naidu was alone in room. She is pleasantly confused, smiles easily, and denies pain/fears. She feels well loved and supported by family. We prayed together for her family at her request. She chatted happily about her past, and I affirmed obvious love. We had an easy rapport. I will remian available to pt and family.
--- NOTE | 2019-11-03 18:27 | NUR ---
PT. SITTING IN BED EATING HER DINNER. TOLERATING WELL. PT'S DAUGHTER WAS HERE TODAY AND SPOKE WITH DR. SNOWDEN. THEY ARE GOING TO LEAVE THE PT. ON THE AIRVO UNTIL THE REST OF HER FAMILY ARRIVES. THE PLAN IS TO CHANGE HER TO COMFORT CARE ONCE THE FAMILY HAS ARRIVED AND THEN SEND HER BACK TO [facility] ON HOSPICE. NONE THIS WILL HAPPEN UNTILTHE 27TH OF THIS MONTH. THE BED ALARM IS NOW ON PT'S BED SHE HAD HER LEGS SWUNG OVER THE SIDE AND HER CANNULA REMOVED WITH THE BIOX ALARMING AT 60%. REPLACED HER OXYGEN AND SHE RECOVERED IN ABOUT 2 MINUTES.
--- NOTE | 2019-11-04 06:28 | NUR ---
11/04/19 0600 AWAKENED FOR AM MED. SMILING AND DENIES ANY DISCOMFORT. MILD SOB NOTED WITH TALKING. TOOK MED WITH PUDDING AND WATER IN SIP CUP WITHOUT PROBLEMS.
--- NOTE | 2019-11-04 14:06 | NUR ---
Pt resting in bed and is on AIRVO. Pt currently on 60 Liter and 60% FIO2. Pt appears comfortable with no S/S of distress at this time. Daughter Анна at bedside. Offered therapeutic support. Анна reports no concerns and is agreeable with plan. Spoke with bedside RN Jodi and discussed case. No concerns reported at this time. Plan: Pt will continue to medical support until family arrives tonight and tomorrow. Pt will be placed on comfort care on . Palliative Care will remain available.
--- NOTE | 2019-11-04 14:49 | NUR ---
AWARE WAITING FOR RELATIVES TO COME AND SEE PATIENT THEN WILL GO ON COMFORT CARE.RELATIVES TO ARRIVE TOMORROW.
--- NOTE | 2019-11-04 16:36 | NUR ---
ALERT TO SELF AND PROBABLY FAMILY. AT THIS TIME AIRVO AT 59L AND 50%. HAS BEEN ADJUSTED A FEW TIMES TODAY. PATIENT DESATS TO LOW 80'S WHEN EATTING. COOPERATIVE. PLEASANT. IV PATENT. TAKES MEDS IN PUDDING OR APPLESAUCE WITHOUT DIFFICULTY. DENIES ANY PAIN. HAS TRIED TO GET UP WITHOUT HELP. BED ALARM ON. BED IN LOW POSITION. PALLIATIVE CARE HAS BEEN IN TO DISCUSS ADVANCE DIRECTIVES W.DAUGHTER. WAITING FOR OTHER FAMILY MEMEBERS TO ARRIVE PROBABLY TOMORROW. WCTM.
--- NOTE | 2019-11-05 01:59 | NUR ---
11/05/19 0020 RESTLESS AND UNABLE TO SLEEP. ANXIOUS AND STATES SHE CAN'T GET COMFORTABLE AND SLEEP. ATIVAN 0.5 MG IV GIVEN. REPOSITIOED ON LEFT SIDE WITH PILLOWS.
--- NOTE | 2019-11-05 02:02 | NUR ---
11/05/19 0200 SLEEPING WELL WITH AIRVO HIGH FLOW O2. PULSE OXIMETER MAINTAINED AND SATS REMAIN ABOVE 95%.
--- NOTE | 2019-11-05 05:56 | NUR ---
11/05/19 0550 PT OCC. WILL REMOVE HER AIRVO AND ALARM FROM PULSE OX. IS HEARD. PT CONFUSED TO ALL BUT SELF. MEDICATED ONCE FOR AIR HUNGER AND ONCE FOR ANXIETY/RESTLESSNESS WITH GOOD EFFECT. FAMILY FROM [place] OF [place] WILL BE SEEING HER TOMORROW FOR THE [place].
--- NOTE | 2019-11-05 10:47 | NUR ---
SHE STARTED OUT THIS MORNING WITH RESP. RATE OF 32/MIN WHEN AWAKE AND 24/MIN WHEN ASLEEP. SHE IS WEARING A HIGH FLOW NASAL PRONGS HUMIDIFIED. SHE HAD A FEW BITES AND TOOK MEDS IN PUDDING. MEDS WOULD BE EASIER TAKEN CRUSHED THAN WHOLE. SHE IS NOW SLEEPING COMFORTABLY WITH RESPIRATIONS AT 20/MIN. THE ONLY TIME SHE HAS WORN THE OXIMIZER THIS MORNING WAS DURING BREAKFAST. CONTINUOUS BIOX ON AND READS 97%. SHE HAS NOT DESATTED THIS AM. SHE NEEDS HELP WITH ALL ADL'S, EVEN THE SIPPY CUP.
--- NOTE | 2019-11-05 16:02 | NUR ---
HER DAUGHTER HAS GONE HOME AFTER BEING HERE FOR [facility]. JUST ROUNDED. ROXANOL WAS GIVEN X1 WHEN HER EYES WERE HURTING AND SHE WAS MORE SOB AND AGITATED. 10 MG HAS NOT MADE MUCH DIFFERENCE. I JUST LOWERED THE BED SOME. HER WATER BAG WAS CHANGED ON HER HEATED HI ANAHI NC. I THINK IF SHE FALLS ASLEEP, SHE'LL BE FEELING BETTER AND HAVE MUCH BETTER BREATHING. RESP RATE HAS RANGED TODAY FROM 20/MIN TO 32/MIN. SHE ENJOYS THE COLD ITEMS ON HER FL DIET BUT NOT THE HOT ITEMS.
--- NOTE | 2019-11-05 18:26 | NUR ---
SHE HAS HAD A PRETTY COMFORTABLE DAY. HER DAUGHTER WAS WITH HER 1/2 THE DAY. SHE NEEDS TO BE FED. SHE DOESN'T GET VERY FAR BY HERSELF. SHE LIKES THE COLD FULL LIQUIDS BETTER THAN THE HOT. ROXANOL GIVEN X1 FOR LABORED BREATHING. HER HEATED HI ANAHI NC HAS BEEN ON ALL DAY EXCEPT THE OXIMIZER FOR MEALS. HI ANAHI DOCUMENTED 60 LPM. THE OXIMIZER HAS BEEN ON 5L. OXIMETER ALWAYS ON. SHE HAS NOT DESATTD TODAY. SHE HAS AN INTERMITTENT COUGH. IT IS NON-PRODUCTIVE. ATTENDS CHANGED PRN INCONTINENCE.
--- NOTE | 2019-11-06 04:42 | NUR ---
SHIFT SUMMARY NO ACUTE CHANGES THIS SHIFT. AOX2- AWARE OF SELF & CAN STATE MONTH, TOWN. VSS. AIRVO IN PLACE ON 60L/MIN W/FIO2 @49%, SPO2 @96%, RR 16-26, COURSE RALES HEARD T/O LUNGS. PT TOOK AIRVO OFF 2X & DESAT IMMEDIATELY 69-75% ON RA, REPLACED AIRVO NC & ENCOURAGED PT TO LEAVE IN PLACE. DENIES PAIN OR N/V. CHANGED & REPOSITIONED PRN. PLEASENT & COOPERATIVE W/CARE. CALL LIGHT IN REACH. WCTM.
--- NOTE | 2019-11-06 15:32 | NUR ---
pt changed to comfort care THE PT WAS CHANGED TO COMFORT CARE, SPOKE WITH THE PT AND HER DAUGHTER AT LENGTH ABOIUT THIS, THE PTS AIRVO WAS REMOVED AND THE PT WAS PLACED ON AN OXYMIZER AT 10L/MIN, PT WAS GIVEN ROXINOL 10 MG AT THIS TIME, PT SATS ARE MAINTAING ABOVE 90% SO FAR, PT APPEARS TO BE COMFORTABLE
--- NOTE | 2019-11-06 17:17 | NUR ---
PT IS A/OX2, PLEASANT AND COOPERATIVE, TODAY THE PT WAS STARTED ON COMFORT CARE, THE AIRVO @ 60L/MIN WAS DC'D AND AN OXYMIZER WAS APPLIED AT 10L/MIN, SO FAR THE PTS O2 STATS HAVE REMAINED ABOVE 90%, THE PT WAS GIVEN MORPHINE X 2 TODAY, PTS DAUGHTER IS AT THE BEDSIDE CALL LIGHT IN REACH, WILL CONTINUE TO MONITOR FOR CHANGES
--- NOTE | 2019-11-06 17:47 | NUR ---
Routine spiritual care note: Mrs. Naidu appears content and comfortable. Her dtr, Анна, at bedside. Gentle anticipatory bereavement career counselor was well recieved by Анна. Prayer for a peaceful transition provided at bedside. Dtr tearful, but appropriate. Affirmed obvious love. Assured pt/dtr of God's presence and attention. Certified Pediatric Nurse Practitioner Services will remain available.
--- NOTE | 2019-11-06 19:40 | NUR ---
COMFORT CARE RESTING QUIETLY, NO NON-VERBAL S/S OF PAIN OR NAUSEA. ON 10L O2 W/SPO2 @96% & RR 26. CALL LIGHT IN REACH & I WCTM.
--- NOTE | 2019-11-07 05:07 | NUR ---
SHIFT SUMMARY ON COMFORT CARE. NO ACUTE CHANGES THIS SHIFT. AOX1, FOLLOWS DIRECTIONS & CAN ANSWER YES/NO QUESTIONS APPROPRIATELY. SPO2 >90% ON 10L O2 VIA OXIMIZER. DENIES DYSPNEA, PAIN OR NAUSEA. HAD MULTIPLE LOOSE BM T/O NIGHT, CHANGED & REPOSITIONED PRN. PLEASENT & COOPERATIVE W/CARE, RESTING COMFORTABLY IN BED WATCHING THE NEWS. CALL LIGHT IN REACH. WCTM.
--- NOTE | 2019-11-07 06:13 | NUR ---
COMFORT CARE PT MOANING OUTLOUD. ASKED IF IN PAIN & STATES "NO". ASKED IF HAVING DIFFICULTY BREATHING STATES "YES". SPO2 @98% ON 10L O2 VIA OXIMIZER. MEDICATED W/10MG ROXANOL PER ORDERS. STATES "YUCK THAT DOESN'T TASTE GOOD." IS CURRENTLY RESTING COMFORTABLY WATCHING TV. WCTM.
--- NOTE | 2019-11-07 08:30 | NUR ---
[facility] COMFORT CARE VISIT MADE. PT SITTING IN BED, AWAKE, RESPONSIVE AND CONVERSANT. SHE IS PLEASANTLY CONFUSED. SHE DENIES PAIN BUT SHOWING NONVERBAL INDICATORS OF MILD PAIN, GRIMACING, FURROWED BROW, GRUNTING WITH BREATHING AND ATTEMPTS TO REPOSITION HERSELF WITH HER ARMS. SHE HAS BEEN ON 5-10L O2 SINCE AIRVO WAS DISCONTINUED YESTERDAY. THIS IS MY FIRST MEETING OF PT SO I AM UNCERTAIN IF HER CONFUSION IS DUE TO ADDED HYPOXIA AND RESPIRATORY EFFORT. THERE ARE NO FAMILY MEMBERS PRESENT AT THIS TIME. CASE CONFERENCED WITH RN AND PT OUTSIDE ROOM AFTER VISIT. DISCUSSED PLAN OF CARE AND S/S MANGEMENT. PHYSICAL THEREAPY WAS D/C'D YESTERDAY WITH COMFORT CARE ORDERS.
[2019-11-07] MEDS ORDERED: MORP20L SL (09:43)
[2019-11-07] MEDS ORDERED: Transderm-Scop1 EACH TD (09:44)
[2019-11-07] MEDS ORDERED: LORA2L PO (09:45)
[2019-11-07] MEDS ORDERED: ONDA4ODT MM (09:46)
--- NOTE | 2019-11-07 10:36 | NUR ---
SUMMARY/DISCHARGE PT DISCHARGED TO HOME WITH HOSPICE TO [place], TRANSPORTATION AND HOSPICE ARRANGED BY DISCHARGE PLANNING, PT'S DAUGHTER NOTIFIED OF DISCHARGE AND TRANSPORT TIME, PT TAKEN SAFELY VIA GURNEY
== END 2019-11-07 10:34 | disposition hospice, home (50) | DRG 871 ==
LOC: ER 13:30 → MEDS 13:31 → PCU 16:18 → MEDS 16:18 → PCU 10-30 01:27 → MEDS 11-01 04:25 → ENPENDDIS 11-07 09:00 → MEDS 11-07 10:34
PROVIDERS: Emergency Medicine; Internal Medicine; ADMIT Hospitalist
PROC: 5A09357 Assistance with Respiratory Ventilation, Less than 24 Consecutive Hours, Continuous Positive Airway Pressure (ICD-10-PCS; principal; 2019-10-30)
DX: A41.9 Sepsis, unspecified organism (principal); J18.9 Pneumonia, unspecified organism; J96.21 Acute and chronic respiratory failure with hypoxia; Z51.5 Encounter for palliative care; J84.10 Pulmonary fibrosis, unspecified; M35.3 Polymyalgia rheumatica; E03.9 Hypothyroidism, unspecified; H90.5 Unspecified sensorineural hearing loss; Z98.1 Arthrodesis status; Z66 Do not resuscitate; G30.9 Alzheimer's disease, unspecified; F02.80 Dementia in other diseases classified elsewhere, unspecified severity, without behavioral disturbance, psychotic disturbance, mood disturbance, and anxiety; I27.20 Pulmonary hypertension, unspecified; Z79.01 Long term (current) use of anticoagulants; K58.9 Irritable bowel syndrome, unspecified
CPT/HCPCS: 0099U; 36415; 71045; 71046; 80048; 80053; 81001; 83605; 83880; 84484; 85025; 87040; 87077; 87086; 87186; 93005; 93010; 94640; 94660; 94760; 94762; 96361; 96365; 97110; 97162; 97530; 99285-25; J0456; J0696; J1650; J1940; J2060; J2270; J2920; J2930; J7030; J7050